=== PATIENT | female | born 1965 | race Caucasian/White ===

== ENCOUNTER 2019-08-15 14:32 | Emergency (ER) | payer OTHER ==
[~2019-08-15] VITALS: Ht 154.9 cm; Wt 83.3 kg
[~2019-08-15 14:32] MED LIST: BCP; CETI10CA PO; ROSU5TAB
[2019-08-15] MEDS ORDERED: SODIUM CHLORIDE FLUSH 10ML SYR IVF ONE ×2 (15:00→16:30)
[2019-08-15 15:05] LABS: BASOPHILS # (AUTO) 0.02 x10^3/uL (0-0.1); BASOPHILS % (AUTO) 0 % (0-1); EOSINOPHILS # (AUTO) 0.03 x10^3/uL (0-0.4); EOSINOPHILS % (AUTO) 0 % (1-7); LYMPHOCYTES # (AUTO) 1.56 x10^3/uL (1-3.4); LYMPHOCYTES % (AUTO) 16 % (22-44); MD NO; MEAN CORPUSCULAR HGB CONC 34.3 g/dL (32.4-35.8); MEAN PLATELET VOLUME 9.3 fL (7.4-10.4); MONOCYTES # (AUTO) 0.24 x10^3/uL (0.2-0.8); MONOCYTES % (AUTO) 3 % (2-9); NEUTROPHILS # (AUTO) 7.98 x10^3/uL (1.8-6.8); NEUTROPHILS % (AUTO) 81 % (42-75); PLATELET COUNT 397 x10^3/uL (130-400); RED CELL DISTRIBUTION WIDTH 13.3 % (9.6-15.2)
[2019-08-15 15:09] LABS: ALANINE AMINOTRANSFERASE 58 U/L (12-78); ALBUMIN 4.5 g/dL (3.4-5.0); ANION GAP 9 mmol/L (5-15); CALCIUM 9.5 mg/dL (8.5-10.1); CHLORIDE 109 mmol/L (98-107); CREATININE 0.84 mg/dL (0.55-1.02)
[2019-08-15 15:11] LABS: ALKALINE PHOSPHATASE 99 U/L (45-117); BILIRUBIN,TOTAL 0.5 mg/dL (0.2-1.0); TOTAL PROTEIN 8.7 g/dL (6.4-8.2)
--- NOTE | 2019-08-15 15:46 | NUR ---
DELIVERY COORDINATOR: PT TO ROOM VIA WHEELCHAIR AT THIS TIME. LU.
--- NOTE | 2019-08-15 16:11 | NUR ---
PT COMPLAINING OF N/V THAT BEGAN TODAY. PT STATES THAT SHE ATTEMPTED TO EAT TOAST AND DRINK WATER TODAY BUT WAS UNABLE TO KEEP IT DOWN. PT TAKING ANTIVIRAL MEDICATION FOR SHINGLES. PT PLACED ON MONITOR, IV STARTED. AT BEDSIDE. WILL CONTINUE TO MONITOR.
[2019-08-15] MEDS ORDERED: SODIUM CHLORIDE 0.9% 1,000 ML IV ONE (16:12)
[2019-08-15] MEDS ORDERED: ONDANSETRON 2MG/ML, 2ML ONE (16:17)
[2019-08-15] MEDS ORDERED: ONDANSETRON 2MG/ML, 2ML IVPush ONE (16:30)
[2019-08-15] MEDS ORDERED: SODIUM CHLORIDE 0.9% 1,000ML IVBOLUS ONE (16:30)
[2019-08-15] MEDS ORDERED: MECLIZINE CHEWABLE 25 MG TAB ONE (17:39)
[2019-08-15 17:45] VITALS: BP 142/76
--- NOTE | 2019-08-15 17:53 | NUR ---
PT AMBULATED TO RESTROOM AND STATED THAT HER NAUSEA HAS SUBSIDED BUT SHE STILL FEELS "EXTREMELY DIZZY". VS STABLE. INFORMED MD. WILL CONTINUE TO MONITOR.
[2019-08-15] MEDS ORDERED: DIAZEPAM 5 MG TABLET ONE (17:55)
[2019-08-15] MEDS ORDERED: MECLIZINE CHEWABLE 25 MG TAB PO ONE (18:00)
[2019-08-15] MEDS ORDERED: DIAZEPAM 5 MG TABLET PO ONE (18:00)
== END 2019-08-15 19:01 | disposition home or self-care (01) ==
LOC: ED 17:45
DX: R11.2 Nausea with vomiting, unspecified (principal); E86.0 Dehydration; R10.12 Left upper quadrant pain; R42 Dizziness and giddiness; R94.31 Abnormal electrocardiogram [ECG] [EKG]
CPT/HCPCS: 36415; 80053; 85025; 93005; 96361; 96374; 99284; J2405; J7030; 96360